=== PATIENT | male | born 1970 | race Caucasian/White ===

== ENCOUNTER → 2017-03-09 | Outpatient (CLI) | payer OTHER ==
[2017-03-09 12:38] LABS: BASO % 0.4 %; BASO ABS # 0.03 K/uL (0-0.2); COMPLETE YES; EOS % 2.4 %; HEMATOCRIT 49.3 % (42-52); IG% 0.2 %; LYMPH % 22.5 %; LYMPH ABS # 1.87 K/uL (1.2-3.4); MEAN CELL VOLUME 92.3 fL (80-100); MEAN CORPUSCULAR HEMOGLOBIN 31.1 pg (25-34); MEAN CORPUSCULAR HGB CONC 33.7 g/dl (32-36); MEAN PLATELET VOLUME 11.7 fL (7.4-10.4); MONO % 7.6 %; NEUT % 66.9 %; PLATELET COUNT 239 K/uL (130-400); RED BLOOD COUNT 5.34 M/uL (4.7-6.1); WHITE BLOOD COUNT 8.32 K/uL (4.8-10.8)
[2017-03-09 12:58] LABS: ESTIMATED AVERAGE GLUCOSE 306 mg/dl; HA1C FLAG Normal (Normal)
[2017-03-09 13:04] LABS: ALT/SGPT 82 U/L (12-78); BLOOD UREA NITROGEN 18 mg/dl (7-18); BUN/CREATININE RATIO 14.8 (10-20); CALCIUM 9.1 mg/dl (8.5-10.1); CARBON DIOXIDE 31 mmol/L (21-32); CHLORIDE 104 mmol/L (98-107); CHOLESTEROL 236 mg/dl (0-200); GLUCOSE 119 mg/dl (70-99); MAGNESIUM 2.1 mg/dl (1.8-2.4); POTASSIUM 4.2 mmol/L (3.5-5.1); SODIUM 140 mmol/L (136-145); TRIGLYCERIDES 251 mg/dl (0-150); VERY LOW DENSITY LIPOPROT CALC 50 mg/dl
[2017-03-09 13:15] LABS: ALKALINE PHOSPHATASE 88 U/L (45-117); AST/SGOT 69 U/L (15-37); CHOLESTEROL/HDL RATIO 5.1; HDL CHOLESTEROL 46 mg/dl; LDL CHOLESTEROL CALCULATED 140 mg/dl
== END | disposition home or self-care (01) ==
LOC: C.LABPVFM 07:25
PROVIDERS: ATTEND Nurse Practitioner Family
DX: E11.65 Type 2 diabetes mellitus with hyperglycemia (principal); R53.83 Other fatigue; R94.6 Abnormal results of thyroid function studies

== ENCOUNTER → 2017-03-13 | Outpatient (CLI) | payer OTHER ==
[2017-03-13 18:03] LABS: URINE APPEARANCE CLEAR (CLEAR); URINE BILIRUBIN NEG (NEG); URINE COLOR YELLOW; URINE EPITHELIAL CELL AUTO 0-5 /lpf (0-5); URINE NITRITE NEG (NEG); URINE SPECIFIC GRAVITY 1.026 (1.000-1.030); UROBILINOGEN NEG (NEG)
[2017-03-13 18:04] LABS: MANUAL MICROSCOPIC REQUIRED? NO; REVIEW REQ? NO
== END | disposition home or self-care (01) ==
LOC: C.LABPVFM 08:21
PROVIDERS: ATTEND Nurse Practitioner Family
DX: E11.65 Type 2 diabetes mellitus with hyperglycemia (principal); R53.83 Other fatigue; R94.6 Abnormal results of thyroid function studies

== ENCOUNTER → 2017-06-06 | Outpatient (CLI) | payer OTHER ==
[2017-06-06 17:36] LABS: MANUAL MICROSCOPIC REQUIRED? NO; REVIEW REQ? NO; URINE APPEARANCE CLEAR (CLEAR); URINE BILIRUBIN NEG (NEG); URINE COLOR YELLOW; URINE EPITHELIAL CELL AUTO 0-5 /lpf (0-5); URINE NITRITE NEG (NEG); URINE PH 6.5 (4.5-7.5); URINE SPECIFIC GRAVITY 1.027 (1.000-1.030); UROBILINOGEN NEG (NEG); ZZUR CULT IF INDIC CLEAN CATCH NO
[2017-06-06 17:58] LABS: CREATININE, URINE 24.2 mg/dl; URINE PROTIEN/CREAT RATIO 0.3 (0-0.2)
[2017-06-06 18:43] LABS: BLOOD UREA NITROGEN 23 mg/dl (7-18); BUN/CREATININE RATIO 14.6 (10-20); CALCIUM 8.7 mg/dl (8.5-10.1); CARBON DIOXIDE 25 mmol/L (21-32); CHLORIDE 96 mmol/L (98-107); CREATININE 1.59 mg/dl (0.60-1.40); GLUCOSE 667 mg/dl (70-99); MAGNESIUM 1.9 mg/dl (1.8-2.4); PHOSPHORUS 3.5 mg/dl (2.5-4.9); POTASSIUM 4.5 mmol/L (3.5-5.1); SODIUM 129 mmol/L (136-145)
[2017-06-06 18:53] LABS: BETA-HYDROXYBUTYRATE 3.72 mg/dL (0.2-2.81)
[2017-06-07 05:25] LABS: ESTIMATED AVERAGE GLUCOSE 258 mg/dl; HA1C FLAG Normal (Normal)
--- NOTE | 2017-06-11 09:39 | CODING QUERY MEDICAL NECESSITY ---
SUPPORTING DIAGNOSIS NEEDED Dr. Fernandes, A supporting diagnosis is required for the test/procedure performed on this patient in order for us to be reimbursed by the patient's insurance. Please provide a supporting diagnosis for the following test/procedure listed below next to the test name along with your signature. *If there is no additional diagnosis for this patient that would support the following test/procedure please document that below next to the test/procedure. Test(s)/Procedure(s) that require a supporting diagnosis: * 41361 VITAMIN D ASSAY DIAGNOSIS: DATE OF SERVICE: 06/06/17 Provider Signature: Date: Thank you Rikki Mercado [facility] Information Management Once completed, please kindly fax back to [phone] For questions please call [phone]
== END | disposition home or self-care (01) ==
LOC: C.LABPVFM 14:16
PROVIDERS: ATTEND Nurse Practitioner Family
DX: R80.9 Proteinuria, unspecified (principal); E11.65 Type 2 diabetes mellitus with hyperglycemia; R06.00 Dyspnea, unspecified

== ENCOUNTER → 2017-06-08 | Outpatient (CLI) | payer OTHER ==
--- NOTE | 2017-06-08 15:26 | DIAGNOSTIC IMAGING REPORT ---
CHEST 2 VIEWS ROUTINE CLINICAL HISTORY: COPD Dyspnea dyspnea COMPARISON STUDY: 10/24/2005 FINDINGS: Slight chronic interstitial change. No focal infiltrates. No evidence for cardiac enlargement. Diaphragms are smooth. IMPRESSION: Slight/mild chronic interstitial prominence. No acute infiltrate. The above report was generated using voice recognition software. It may contain grammatical, syntax or spelling errors. Electronically signed by: Andreas Rodríguez M.D. 06/08/2017 3:25 PM Dictated Date/Time: 06/08/2017 3:24 PM
== END | disposition home or self-care (01) ==
LOC: C.RADPV 15:04
PROVIDERS: ATTEND Internal Medicine Critical Care Medicine
DX: J44.9 Chronic obstructive pulmonary disease, unspecified (principal); R06.00 Dyspnea, unspecified

== ENCOUNTER → 2017-06-19 | Outpatient (CLI) | payer OTHER ==
[2017-06-19 18:46] LABS: BLOOD UREA NITROGEN 17 mg/dl (7-18); BUN/CREATININE RATIO 12.7 (10-20); CALCIUM 8.7 mg/dl (8.5-10.1); CARBON DIOXIDE 26 mmol/L (21-32); CHLORIDE 101 mmol/L (98-107); CREATININE 1.35 mg/dl (0.60-1.40); GLUCOSE 280 mg/dl (70-99); PHOSPHORUS 3.4 mg/dl (2.5-4.9); POTASSIUM 4.1 mmol/L (3.5-5.1); SODIUM 134 mmol/L (136-145)
== END | disposition home or self-care (01) ==
LOC: C.LABPVFM 12:19
PROVIDERS: ATTEND Internal Medicine Nephrology
DX: N28.9 Disorder of kidney and ureter, unspecified (principal)

== ENCOUNTER → 2017-07-23 | Outpatient (CLI) | payer OTHER ==
--- NOTE | 2017-07-23 19:48 | DIAGNOSTIC IMAGING REPORT ---
NUCLEAR MEDICINE PULMONARY VENTILATION/PERFUSION STUDY CLINICAL HISTORY: Torus of breath. Pulmonary embolism. COMPARISON STUDY: Chest x-ray dated 06/08/2017 FINDINGS: The patient was ventilated utilizing 31.2 mCi of technetium 99m DTPA aerosol. The patient was subsequently perfused utilizing 6.2 mm series of technetium 99m MAA. There is diffusely heterogeneous perfusion. There are multiple matched and mismatched defects. This study is of intermediate probability for pulmonary embolism. CT angiography of the chest could be obtained in follow-up as deemed clinically necessary. IMPRESSION: Significant airway disease. This limits the sensitivity and specificity of this study. This examination is of intermediate probability for pulmonary embolism. CT angiography of the chest could be obtained in follow-up as deemed clinically necessary. Electronically signed by: Tomy Rowe M.D. 07/23/2017 7:47 PM Dictated Date/Time: 07/23/2017 7:42 PM
== END | disposition home or self-care (01) ==
LOC: C.NUCL 18:35
PROVIDERS: ATTEND Internal Medicine Critical Care Medicine
DX: I26.99 Other pulmonary embolism without acute cor pulmonale (principal); R06.02 Shortness of breath

== ENCOUNTER → 2017-07-26 | Outpatient (CLI) | payer OTHER ==
[~2017-07-26] MED LIST: OPTIRAY 320 IV PRN
--- NOTE | 2017-07-26 16:07 | DIAGNOSTIC IMAGING REPORT ---
BILATERAL LOWER EXTREMITY VENOUS DOPPLER HISTORY: I26.99 Pulmonary [id number] SOB (shortness of breath) on exe COMPARISON STUDY: None. FINDINGS: There is normal compressibility and augmentation within the bilateral lower extremity deep venous systems. There is slow flow throughout the bilateral lower extremity venous systems. IMPRESSION: No DVT within the right or left lower extremity. Electronically signed by: Dileep Woods M.D. 07/26/2017 4:05 PM Dictated Date/Time: 07/26/2017 4:05 PM
--- NOTE | 2017-07-26 17:21 | DIAGNOSTIC IMAGING REPORT ---
CHEST CTA for PULMONARY ARTERIES CT DOSE: 492.34 mGycm HISTORY: Pulmonary [id number] SOB (shortness of breath TECHNIQUE: Multiaxial CT images of the chest were performed following the intravenous administration of contrast to evaluate the pulmonary arteries. Maximal intensity projection images were also obtained. A dose lowering technique was utilized adhering to the principles of ALARA. COMPARISON STUDY: Ventilation/perfusion scan 07/23/2017. Chest 06/08/2017. FINDINGS: Normal caliber thoracic aorta. No evidence for dissection within the opacified thoracic aorta. No pleural or pericardial effusions. No filling defects within the pulmonary arteries to suggest pulmonary embolus. The heart is normal in size. The visualized liver and spleen are unremarkable. The left kidney appears surgically absent. Subcentimeter mediastinal lymph nodes do not meet CT criteria for pathologic involvement. No fractures within the visualized osseous structures. No pneumothorax. The central airways are patent. Mild emphysema. A 5 mm nodule within the left upper lobe abutting the aortic arch on image 246. A 5 mm nodule within the base of the left lower lobe on image 100. No focal lung consolidations to suggest pneumonia. A 4 mm nodule within the right middle lobe on image 114. IMPRESSION: 1. No evidence for pulmonary embolus. 2. Mild emphysema. 3. A few scattered pulmonary nodules as described above with the largest measuring 5 mm. Please refer to the chart below for recommended follow-up. Please refer to below summary of Fleischner criteria recommendations for follow-up of incidental CT nodules (Kimmie Mohr, Guidelines for management of small pulmonary nodules detected on CT scans: A statement from the Fleischner Society, Radiology 237: [phone].) SOLID NODULES Solitary nodule size: <6 mm * Low risk patients: no follow-up needed * high risk patients: optional CT at 12 months Solitary nodule size: 6-8 mm * Low risk patients: follow-up at 6-12 months, then consider further follow-up at 18-24 months * high risk patients: initial follow-up CT at 6-12 months and then at 18-24 months if no change Solitary nodule size: >8 mm * either low or high risk patients - consider follow-up CT at 3 months, and/or CT-PET, and/or biopsy Multiple nodules size: <6 mm * Low risk patients: no routine follow-up * high risk patients: optional CT at 12 months Multiple nodules size: 6-8 mm * Low risk patients: follow-up at 3-6 months, then consider further follow-up at 18-24 months * high risk patients: follow-up at 3-6 months, then at 18-24 months if no change Multiple nodules size: >8 mm * Low risk patients: follow-up at 3-6 months, then consider further follow-up at 18-24 months * high risk patients: follow-up at 3-6 months, then at 18-24 months if no change Note: newly detected indeterminate nodule in persons 35 years of age or older. * Low risk patients: minimal or absent history of smoking and/or other known risk factors * high risk patients: history of smoking or of other known risk factors (e.g. first degree relative with lung cancer, or exposure to asbestos, radon, uranium) * if a nodule up to 8 mm is partly solid or is ground glass further follow-up is required after 24 months to exclude possible slow growing adenocarcinoma (MICHAEL) SUBSOLID NODULES Solitary pure ground-glass nodule * nodule size <6 mm - no CT follow-up required * nodule size >=6 mm - follow-up CT at 6-12 months, then every 2 years until 5 years Solitary part-solid nodule * nodule size <6 mm - no CT follow-up required * nodule size >=6 mm - follow-up CT at 3-6 months. If unchanged, and solid component remains <6 mm, then annual follow-up for 5 years Multiple subsolid nodules * nodule size <6 mm - follow-up CT at 3-6 months, consider further follow-up at 2 and 4 years if stable * nodule size >=6 mm - follow-up CT at 3-6 months, subsequent management based on the most suspicious nodule(s) Electronically signed by: Dileep Woods M.D. 07/26/2017 5:19 PM Dictated Date/Time: 07/26/2017 5:09 PM
== END | disposition home or self-care (01) ==
LOC: C.ULTR 15:09
PROVIDERS: ATTEND Internal Medicine Critical Care Medicine
DX: I26.99 Other pulmonary embolism without acute cor pulmonale (principal); R06.02 Shortness of breath

== ENCOUNTER → 2017-08-23 | Outpatient (CLI) | payer OTHER ==
[2017-08-23 17:23] LABS: BLOOD UREA NITROGEN 17 mg/dl (7-18); CARBON DIOXIDE 28 mmol/L (21-32); CREATININE 1.34 mg/dl (0.60-1.40); GLUCOSE 435 mg/dl (70-99); POTASSIUM 4.4 mmol/L (3.5-5.1); SODIUM 134 mmol/L (136-145)
--- NOTE | 2017-09-06 10:30 | CODING QUERY NO DIAGNOSIS ---
: 1970 TREATMENT RENDERED WITHOUT A DIAGNOSIS To promote full compliance with coding requirements relating to patient care, physician participation is requested in all cases of meat selector uncertainty. Please assist us with providing a diagnosis/symptom for the test(s) below: A diagnosis/symptom was not documented on your Order. A valid diagnosis/symptom is required to bill all insurances. Please remember that we are unable to code a diagnosis of rule out, probable, possible, questionable, or suspected. Tests that require a diagnosis: DOS: 08/23/17 * Beta Hydroxybutyrate DIAGNOSIS: Provider Signature: Date: Thank you Gena Duncan [facility] Information Management Once completed, please kindly fax back to [phone] For questions please call [phone]
== END | disposition home or self-care (01) ==
LOC: C.LAB1850 15:19
PROVIDERS: ATTEND Internal Medicine
DX: E03.9 Hypothyroidism, unspecified (principal); N28.9 Disorder of kidney and ureter, unspecified; E10.29 Type 1 diabetes mellitus with other diabetic kidney complication

== ENCOUNTER → 2017-09-04 | Outpatient (CLI) | payer OTHER ==
[~2017-09-04] MED LIST changes: +ATROPINE SULFATE 0.1 MG/ML 5ML SYR ONE; +DOBUTamine HCL 12.5 MG/ML 20 ML VIAL ONE; +METOPROLOL TARTRATE 1 MG/ML VIAL ONE; -OPTIRAY 320 IV PRN; +PERFLUTREN LIPID MICROSPHERE (DEFINITY) IV ONE
--- NOTE | 2017-09-04 13:17 | DOBUTAMINE ECHO ---
*NOTICE TO RECEIVING [employer] This information is strictly Confidential and protected under [place] law. [place] law prohibits you from making any further disclosure of this information unless further disclosure is expressly permitted by the written consent of the person to whom it pertains or is authorized by law. A general authorization for the release of medical or other information is not sufficient for this purpose. Hospital accepts no responsibility if the information is made available to any other person, INCLUDING THE PATIENT. Interpretation Summary * Name: MARTINE MCGINNIS III Study Date: 09/04/2017 10:09 AM BP: 110/75 mmHg * Patient Location: [facility] HR: 60 * : 1970 (M/d/yyyy) Gender: Male Height: 74 in * Age: 46 yrs Ethnicity: CA Weight: 167 lb * Ordering Physician: Edenilson Shabazz * Referring Physician: Edenilson Shabazz * Performed By: Tammy Curtis RDCS * * Reason For Study: Chest pain, dyspnea * BSA: 2.0 m2 * -- Conclusions -- * Left ventricular systolic function is normal. * Normal diastolic function * Right ventricular systolic pressure is normal. * Normal dobutamine echocardiogram without evidence of inducible ischemia Procedure Details * DOBUTAMINE ECHO, CPT#73108 * ECHO DOPPLER, CPT #60514 * ECHO COLOR FLOW, CPT #[id number] * A contrast injection of Definity was performed to improve assessment of LV function. * Contrast was injected into an intravenous site in the left arm. * One vial of Definity ultrasound contrast was diluted in normal saline to a total volume of 10 ml. A total of '5' ml of solution was administered during imaging. * Lot # [id number] of Definity utilized for procedure. * Expiration date AUG 27. * The attending nurse who injected the contrast agent was Flor Santiago RN. Left Ventricular Findings with Stress * Normal dobutamine echocardiogram without evidence of inducible ischemia Left Ventricle * The left ventricle is normal in size. * There is normal left ventricular wall thickness. * Ejection Fraction = 60-65%. * Left ventricular systolic function is normal. * Normal diastolic function * The left ventricular wall motion is normal at rest. Right Ventricle * The right ventricle is normal in size and function. * The right ventricular systolic function is normal as assessed by tricuspid annular plane systolic excursion (TAPSE) (normal >1.5 cm). Atria * The left atrial size is normal. * Right atrial size is normal. Mitral Valve * The mitral valve is grossly normal. * There is no mitral regurgitation noted. Tricuspid Valve * The tricuspid valve is not well visualized, but is grossly normal. * There is trace tricuspid regurgitation. * Right ventricular systolic pressure is normal. Aortic Valve * The aortic valve is normal in structure and function. * The aortic valve is trileaflet. * No hemodynamically significant valvular aortic stenosis. * There is no significant aortic regurgitation. Great Vessels * The aortic root is normal size. Pericardium * There is no pericardial effusion. Stress Parameters * Normal baseline electrocardiogram. * Stress ECG: No ST changes. No arrhythmias. * Rest heart rate was '60' BPM. * Rest blood pressure was '110/75' * Maximum heart rate achieved was 153 bpm. * Maximum heart rate was 88 % of maximum age-predicted heart rate. * Maximum blood pressure was '149/82' * Maximum Dobutamine infusion rate was '40' mcg/kg/min. * A total of 0.5 mg of intravenous Atropine was used to supplement Dobutamine for heart rate response. * Dobutamine infusion was terminated due to achieving target heart rate * A total of 5 mg of IV Metoprolol was administered to reverse Dobutamine-induced tachycardia. * The patient did not exhibit any symptoms during drug infusion. Left Ventricular Findings with Stress * Normal baseline EKG No significant EKG changes with dobutamine infusion Baseline wall motion is normal There was normal augmentation of all segments without inducible wall motion abnormality at peak dobutamine infusion Normal heart rate and blood pressure response to dobutamine No symptoms reported MMode 2D Measurements and Calculations IVSd 0.66 cm LVIDd 4.5 cm LVIDs 3.1 cm LVPWd 0.69 cm IVS/LVPW 0.95 FS 31.7 % EDV(Teich) 92.5 ml ESV(Teich) 37.1 ml EF(Teich) 59.9 % EDV(cubed) 91.2 ml ESV(cubed) 29.0 ml EF(cubed) 68.2 % LV mass(C)d 91.6 grams LV mass(C)dI 45.5 grams/m\S\2 SV(Teich) 55.3 ml SI(Teich) 27.5 ml/m\S\2 SV(cubed) 62.1 ml SI(cubed) 30.9 ml/m\S\2 Ao root diam 2.6 cm Ao root area 5.4 cm\S\2 ACS 2.2 cm LA dimension 2.4 cm asc Aorta Diam 3.3 cm LA/Ao 0.92 LVOT diam 2.0 cm LVOT area 3.3 cm\S\2 LVAd ap4 30.8 cm\S\2 LVLd ap4 7.4 cm EDV(MOD-sp4) 106.2 ml EDV(sp4-el) 109.6 ml LVAs ap4 16.5 cm\S\2 LVLs ap4 5.7 cm ESV(MOD-sp4) 40.5 ml ESV(sp4-el) 40.6 ml EF(MOD-sp4) 61.9 % EF(sp4-el) 63.0 % LVAd ap2 30.1 cm\S\2 LVLd ap2 7.5 cm EDV(MOD-sp2) 101.3 ml EDV(sp2-el) 102.4 ml LVAs ap2 17.3 cm\S\2 LVLs ap2 6.1 cm ESV(MOD-sp2) 40.0 ml ESV(sp2-el) 41.5 ml EF(MOD-sp2) 60.5 % EF(sp2-el) 59.5 % LVLd %diff 1.9 % EDV(MOD-bp) 105.3 ml LVLs %diff 6.9 % ESV(MOD-bp) 42.0 ml EF(MOD-bp) 60.1 % SV(MOD-sp4) 65.7 ml SI(MOD-sp4) 32.6 ml/m\S\2 SV(MOD-sp2) 61.3 ml SI(MOD-sp2) 30.5 ml/m\S\2 SV(MOD-bp) 63.3 ml SI(MOD-bp) 31.5 ml/m\S\2 SV(sp4-el) 69.0 ml SI(sp4-el) 34.3 ml/m\S\2 SV(sp2-el) 60.9 ml SI(sp2-el) 30.3 ml/m\S\2 Doppler Measurements and Calculations MV E max shaan 58.2 cm/sec MV A max shaan 46.6 cm/sec MV E/A 1.3 MV dec time 0.30 sec Ao V2 max 87.6 cm/sec Ao max PG 3.1 mmHg Ao max PG (full) 0.44 mmHg ANGELICA(V,A) 3.0 cm\S\2 ANGELICA(V,D) 3.0 cm\S\2 LV V1 max PG 2.6 mmHg LV V1 max 81.0 cm/sec PA V2 max 67.9 cm/sec PA max PG 1.8 mmHg PA acc slope 484.5 cm/sec\S\2 PA acc time 0.10 sec TR max shaan 177.8 cm/sec PA pr(Accel) 33.1 mmHg
== END | disposition home or self-care (01) ==
LOC: C.CPL 09:33
PROVIDERS: ATTEND Internal Medicine Critical Care Medicine
DX: R06.00 Dyspnea, unspecified (principal); R07.89 Other chest pain

== ENCOUNTER → 2017-09-06 | Outpatient (CLI) | payer OTHER ==
[2017-09-07 06:43] LABS: HEMOGLOBIN A1C 11.9 % (4.5-5.6)
== END | disposition home or self-care (01) ==
LOC: C.LAB1850 14:53
PROVIDERS: ATTEND Nurse Practitioner Adult Health
DX: E10.29 Type 1 diabetes mellitus with other diabetic kidney complication (principal); Z79.4 Long term (current) use of insulin

== ENCOUNTER → 2017-10-05 | Outpatient (CLI) | payer OTHER | END | disposition home or self-care (01) | LOC: C.LAB1850 16:07 | PROVIDERS: ATTEND Internal Medicine Nephrology | DX: E11.21 Type 2 diabetes mellitus with diabetic nephropathy (principal) ==

== ENCOUNTER → 2018-01-29 | Outpatient (CLI) | payer OTHER ==
[2018-01-29 17:54] LABS: ALBUMIN 3.8 gm/dl (3.4-5.0); ALKALINE PHOSPHATASE 72 U/L (45-117); ALT/SGPT 36 U/L (12-78); AST/SGOT 22 U/L (15-37); BLOOD UREA NITROGEN 20 mg/dl (7-18); CALCIUM 8.5 mg/dl (8.5-10.1); CARBON DIOXIDE 27 mmol/L (21-32); CHOLESTEROL 137 mg/dl (0-200); CREATININE 1.29 mg/dl (0.60-1.40); GLUCOSE 388 mg/dl (70-99); LDL CHOLESTEROL CALCULATED 57 mg/dl; POTASSIUM 4.1 mmol/L (3.5-5.1); SODIUM 136 mmol/L (136-145); TOTAL PROTEIN 6.9 gm/dl (6.4-8.2)
[2018-01-30 06:08] LABS: HEMOGLOBIN A1C 11.9 % (4.5-5.6)
== END | disposition home or self-care (01) ==
LOC: C.LAB1850 15:14
PROVIDERS: ATTEND Nurse Practitioner Adult Health
DX: E10.29 Type 1 diabetes mellitus with other diabetic kidney complication (principal); E10.65 Type 1 diabetes mellitus with hyperglycemia; E03.9 Hypothyroidism, unspecified

== ENCOUNTER 2018-02-11 10:22 | Emergency (ER) | payer OTHER ==
[~2018-02-11] VITALS: Ht 188 cm; Wt 76.2 kg
[2018-02-11 10:24] VITALS: TEMP 36.6; Ht 188 cm; Wt 76.2 kg
[2018-02-11 10:48] LABS: HEMATOCRIT 49.2 % (42-52); HEMOGLOBIN 16.6 g/dL (14.0-18.0); MEAN CELL VOLUME 91.4 fL (80-100); MEAN CORPUSCULAR HEMOGLOBIN 30.9 pg (25-34); MEAN CORPUSCULAR HGB CONC 33.7 g/dl (32-36); MEAN PLATELET VOLUME 11.5 fL (7.4-10.4); PLATELET COUNT 219 K/uL (130-400); RED CELL DISTRIBUTION WIDTH CV 12.7 % (11.5-14.5); RED CELL DISTRIBUTION WIDTH SD 42.6 fL (36.4-46.3); WHITE BLOOD COUNT 10.79 K/uL (4.8-10.8)
[2018-02-11] MEDS ORDERED: SODIUM CHLORIDE 0.9% 1000ML 1,000 ML IV STA ×2 (11:01→11:50)
[2018-02-11 11:02] LABS: PTT PATIENT 24.7 SECONDS (21.0-31.0)
[2018-02-11] MEDS ORDERED: INSPMPNVLG (11:07)
[2018-02-11] MEDS ORDERED: LPT40 PO (11:07)
[2018-02-11] MEDS ORDERED: VNTHFA/IN INH (11:07)
[2018-02-11] MEDS ORDERED: LSN25 PO (11:07)
[2018-02-11] MEDS ORDERED: LEVO100T7 PO (11:07)
--- NOTE | 2018-02-11 11:07 | DIAGNOSTIC IMAGING REPORT ---
SINGLE VIEW CHEST CLINICAL HISTORY: Atypical chest pain. FINDINGS: 2 AP, portable, upright chest radiographs are compared to study dated 06/08/2017 and correlated with chest CT dated 07/26/2017. The examination is degraded by portable technique and patient rotation. The cardiomediastinal silhouette is unremarkable. The lungs and pleural spaces are clear. No pneumothorax is seen. The bony thorax is grossly intact. IMPRESSION: No acute cardiopulmonary abnormality. Electronically signed by: Ashwin Castillo M.D. 02/11/2018 11:06 AM Dictated Date/Time: 02/11/2018 11:05 AM
[2018-02-11 11:10] LABS: CALCIUM 8.7 mg/dl (8.5-10.1); CKMB 1.5 ng/ml (0.5-3.6); CREATININE 1.53 mg/dl (0.60-1.40); POTASSIUM 5.3 mmol/L (3.5-5.1); TOTAL PROTEIN 7.3 gm/dl (6.4-8.2)
[2018-02-11] MEDS ORDERED: NovoLIN-R INSULIN PER UNIT CHARGE IV STA ×2 (11:50→14:36)
[2018-02-11 13:27] VITALS: O2SAT 96
--- NOTE | 2018-02-11 13:56 | EMERGENCY ROOM VISIT NOTE ---
History First contact with patient: 10:59 Chief Complaint: CHEST PAIN Stated Complaint: CHEST PAIN,SOB,HYPERGLYCEMIA Nursing Triage Summary: PT HERE WITH CHEST PAIN SINCE THIS AM. PT STATES NO CARDIAC HX. HAD SAME PAINS WHEN HE WAS DX WITH DM. PT WEARS INSULIN PUMP BUT IT FELL OUT LAST PM AND PT IS NOT GETTING NEEDLES UNTIL THIS AM. PT DENIES ANY SOB OR NAUSEA. SOME DISCOMFORT IN L SHOULDER History of Present Illness The patient is a 47 year old male who presents to the Emergency Room with complaints of chest pain which began this morning. The patient states he was not feeling well last night and had complained of increased gas. He states the pain began at approximately 8 AM and radiated across his chest and down his left arm into his fingertips. He states his fingertips did begin feeling slightly numb. He states his port for his insulin pump came out yesterday and he is currently waiting for needles to be delivered. He has not received any insulin since yesterday afternoon. The patient states his pain is feeling better now. He denies any aggravation or alleviation of the pain and has taken no medications. He has had pain similar to this in the past when he was diagnosed with diabetes. He denies any dizziness, nausea, vomiting, or edema. He does report some mild dyspnea. He denies any recent illness including fever , chills, or congestion. Patient is followed by Joanna gomez from endocrinology. He has not contacted their office regarding the need for his pump supplies. He states he did take 10 units of NovoLog this morning. Review of Systems A complete 10 point review of systems was reviewed with the patient with pertinent positives and negatives as per history of present illness. All else were negative. Past Medical/Surgical History Diabetes, hypertension, hyperlipidemia Social History Smoking Status: Current Every Day Smoker Smokeless Tobacco Use: No Alcohol Use: occasionally Drug Use: none Marital Status: Housing Status: lives with family Occupation Status: employed Current/Historical Medications Scheduled Atorvastatin (Lipitor), 40 MG PO QPM Insulin Aspart (novoLOG INSULIN PUMP ), 1 DOSE N/A UD Levothyroxine Sodium (Levothyroxine Sodium), 100 MCG PO QAM Lisinopril (Lisinopril), 2.5 MG PO DAILY Scheduled PRN Albuterol Hfa (Ventolin Hfa), 2 PUFFS INH Q4-6HRS PRN for SOB/Wheezing Physical Exam Vital Signs Date Time Temp Pulse Resp B/P (MAP) Pulse Ox O2 Delivery O2 Flow Rate FiO2 02/11/18 15:15 80 18 109/68 98 02/11/18 14:39 79 22 103/63 99 02/11/18 14:09 68 02/11/18 13:27 96 Room Air 02/11/18 13:26 68 18 110/71 97 02/11/18 11:41 92 20 114/75 98 Room Air 02/11/18 11:00 98 Room Air 02/11/18 10:38 88 02/11/18 10:24 36.6 89 20 125/79 98 Room Air Physical Exam VITALS: Vitals are noted on the nurse's note and reviewed by myself. Vital signs stable. GENERAL: This is a 47-year-old white male, in no acute distress, nondiaphoretic , well-developed well-nourished. SKIN: The skin was without rashes, erythema, edema, or bruising. There is no tenting of the skin. Capillary reflex less than 2 seconds. HEAD: Normocephalic atraumatic. EARS: External auditory canals clear, tympanic membranes pearly redman without erythema or effusion bilaterally. EYES: Pupils equal round and reactive to light and accommodation. Conjunctivae without injection, sclerae without icterus. Extraocular movements intact. NOSE: Patent, turbinates without inflammation or discharge. No sinus tenderness. MOUTH: Mucous membranes moist. Tonsils are not enlarged. Pharynx without erythema or exudate. Uvula midline. Airway patent. Tongue does not deviate. NECK: Supple without nuchal rigidity. No lymphadenopathy. No thyromegaly. Cervical spine is nontender. No JVD. HEART: Regular rate and rhythm without murmurs gallops or rubs. LUNGS: Clear to auscultation bilaterally without wheezes, rales or rhonchi. No dullness to percussion. No retractions or accessory muscle use. ABDOMEN: Positive bowel sounds x 4. Normal tympanic percussion. Soft, nontender, without masses or organomegaly. Cai sign negative. No guarding or rebound tenderness. MUSCULOSKELETAL: No muscle atrophy, erythema, or edema noted. Full range of motion without joint tenderness in all extremities. No tenderness to palpation. Normal gait. Strength 5/5 throughout. NEURO: Patient was alert and oriented to person place and time. Normal sensation to light and sharp touch. Deep tendon reflexes 2+ throughout. No focal neurological deficits. Medical Decision & Procedures ER Provider Diagnostic Interpretation: SINGLE VIEW CHEST CLINICAL HISTORY: Atypical chest pain. FINDINGS: 2 AP, portable, upright chest radiographs are compared to study dated 06/08/2017 and correlated with chest CT dated 07/26/2017. The examination is degraded by portable technique and patient rotation. The cardiomediastinal silhouette is unremarkable. The lungs and pleural spaces are clear. No pneumothorax is seen. The bony thorax is grossly intact. IMPRESSION: No acute cardiopulmonary abnormality. Electronically signed by: Ashwin Castillo M.D. 02/11/2018 11:06 AM Dictated Date/Time: 02/11/2018 11:05 AM Laboratory Results 02/11/18 10:35 02/11/18 13:38 Test 02/11/18 10:32 02/11/18 10:35 02/11/18 11:05 02/11/18 11:24 Bedside Glucose 508 mg/dl (70-99) Red Blood Count 5.38 M/uL (4.7-6.1) Mean Corpuscular Volume 91.4 fL (80-100) Mean Corpuscular Hemoglobin 30.9 pg (25-34) Mean Corpuscular Hemoglobin Concent 33.7 g/dl (32-36) RDW Standard Deviation 42.6 fL (36.4-46.3) RDW Coefficient of Variation 12.7 % (11.5-14.5) Mean Platelet Volume 11.5 fL (7.4-10.4) Prothrombin Time 10.0 SECONDS (9.0-12.0) Prothromb Time International Ratio 1.0 (0.9-1.1) Activated Partial Thromboplast Time 24.7 SECONDS (21.0-31.0) Partial Thromboplastin Ratio 1.0 D-Dimer 250 ug/L FEU (0-500) Total Bilirubin 1.5 mg/dl (0.2-1) Aspartate Amino Transf (AST/SGOT) 25 U/L (15-37) Alanine Aminotransferase (ALT/SGPT) 40 U/L (12-78) Alkaline Phosphatase 85 U/L (45-117) Total Creatine Kinase 110 U/L (39-308) Creatine Kinase MB 1.5 ng/ml (0.5-3.6) Creatine Kinase MB Ratio 1.4 (0-3.0) Total Protein 7.3 gm/dl (6.4-8.2) Albumin 4.0 gm/dl (3.4-5.0) Globulin 3.3 gm/dl (2.5-4.0) Albumin/Globulin Ratio 1.2 (0.9-2) Urine Color YELLOW Urine Appearance CLEAR (CLEAR) Urine pH 5.0 (4.5-7.5) Urine Specific [place] 1.027 (1.000-1.030) Urine Protein NEG (NEG) Urine Glucose (UA) 3+ (NEG) Urine Ketones 3+ (NEG) Urine Occult Blood NEG (NEG) Urine Nitrite NEG (NEG) Urine Bilirubin NEG (NEG) Urine Urobilinogen NEG (NEG) Urine Leukocyte Esterase NEG (NEG) Lactic Acid Level 1.9 mmol/L (0.4-2.0) Lipase 101 U/L (73-393) Test 02/11/18 12:22 02/11/18 13:38 Bedside Troponin I < 0.030 ng/ml (0-0.045) Anion Gap 11.0 mmol/L (3-11) Est Creatinine Clear Calc Drug Dose 70.6 ml/min Estimated GFR () 69.6 Estimated GFR (Non- 60.0 BUN/Creatinine Ratio 18.0 (10-20) Calcium Level 8.2 mg/dl (8.5-10.1) Beta-Hydroxybutyric Acid 33.32 mg/dL (0.2-2.81) Medications Administered Medications (Trade) Dose Ordered Sig/Miki Route Start Time Stop Time Status Last Admin Dose Admin Sodium Chloride 1,000 ml @ 999 mls/hr Q1H1M STAT IV 02/11/18 11:01 02/11/18 12:01 DC 02/11/18 11:11 999 MLS/HR Sodium Chloride 1,000 ml @ 999 mls/hr Q1H1M STAT IV 02/11/18 11:50 02/11/18 12:50 DC 02/11/18 11:59 999 MLS/HR Insulin Human Regular (novoLIN-R U-100 PER UNIT) 10 units NOW STAT IV 02/11/18 11:50 02/11/18 11:52 DC 02/11/18 12:00 10 UNITS ECG Per My Interpretation Indication: chest pain Rate (beats per minute): 81 Rhythm: sinus with SA Findings: no acute ischemic change, no ectopy Comparison ECG Date: 2004 Change: no significant change (previous sinus bradycardia with SA, current sinus rhythm with SA) ED Course Critical pathways initiated by nursing staff. IV access obtained, labs drawn. Imaging performed and reviewed by myself and radiologist as above. The patient was seen and evaluated as above. Labs reviewed by myself. I discussed the case with my attending. I consulted with the patient's endocrinology provider, Joanna Michelle. The patient was given 2L IV NSS and 10 units of insulin IV. Repeat BMP performed and reviewed by myself. I discussed the findings with the patient at bedside. The patient had hooked up his sensor and states his blood sugar is continuing to drop. He requested to be discharged so he can go to endocrinology and obtain supplies needed for his insulin pump. Discharge instructions reviewed, the patient was discharged home in good condition. Medical Decision This is a 47-year-old male patient presents emergency department today complaining of chest pain. The patient has experienced similar pain with hyperglycemia and diagnosis of diabetes. Cardiac workup here in the emergency department was negative. Suspect the patient's symptoms are related to the hyperglycemia, as his chest pain improved while here in the emergency department as his blood sugar improved as well. Negative troponins 2. Patient 's CBC is without leukocytosis, anemia, thrombocytopenia. Coagulation factors were normal. D-dimer was negative. Urinalysis with positive ketones, but negative for infection or blood. POC Glucose 508. Initial CMP concerning for early DKA with elevated BSG of 542, hyponatremia of 125, hyperkalemia 5.3, anion gap 14.0 and elevated creatinine of 1.53. Lactic acid 1.9. Hepatic function without significant abnormalities, however bilirubin slightly elevated at 1.5. Beta hydroxybutyric acid 48.88. Initial troponin and CK-MB were normal. Lipase was normal. Repeat troponin at 90 minutes was negative. Repeat BMP after 2 L normal saline solution and 10 units of insulin was significantly improved. Sodium has improved to 135. Potassium 4.3. Anion gap 11.0. Creatinine 1.38. Glucose has improved to 323. Beta-Hydroxybutyric Acid 33.32. At this point, I had intended to give the patient another 6 units of IV insulin, however he has inserted his sensor and states his blood sugar has improved to the 280s and would like to go home. The patient is planning on going straight to the endocrinology office to obtain supplies for his pump as well as insulin. He is concerned that his sugar may continue to drop and would like to get something to eat. I do feel that this is reasonable, as after speaking with the patient's endocrinology provider, his sugars typically run in the 200s-300s with a recent A1c of 11.9. Discharge instructions were reviewed, and all questions answered patient satisfaction prior to discharge. He was given strict return precautions. Etiologies such as cardiac ischemia, aortic dissection, pulmonary embolism, pneumonia, pneumothorax, musculoskeletal, infections, gastrointestinal, DKA, hyperglycemia, as well as others were entertained. The chart was completed utilizing [employer] Speech voice recognition software. Grammatical errors, random word insertions, pronoun errors, and incomplete sentences are an occasional consequence of this system due to software limitations, ambient noise, and hardware issues. Any formal questions or concerns about the content, text, or information contained within the body of this dictation should be directly addressed to the provider for clarification. Medication Reconcilliation Current Medication List: was personally reviewed by me Blood Pressure Screening Patient's blood pressure: Normal blood pressure Consults Consulting Physician: Joanna Michelle I contacted Sienna Albright with endocrinology. 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 He is normally in the 300s, and his last A1c was checked in January and was 11.9. He was started on the pump to avoid his sugars from dropping too low, however does not have insurance so it has been difficult to get back in for follow-up. She advised that she feels comfortable of the patient's electrolytes and glucose improve while here in the emergency department and we can get him hydrated to send him home. She stated that he could stop by the office and be seen by the para educator. They do have insulin in the office as well as pump supplies that they can supply the patient with until he is able to get his package delivered. She did request that I contact her back at extension [phone] after repeat labs and disposition. Impression Primary Impression: Non-cardiac chest pain Additional Impression: Hyperglycemia Departure Information Dispostion Home / Self-Care Condition GOOD Referrals RV. Maki MD (PCP) Miguel Angel, Joanna Whyte Patient Instructions ED Chest Pain NonCardiac, ED Hyperglycemia Diabetic, My [facility] Additional Instructions You were seen in the emergency department today for hyperglycemia. As discussed , you do need to follow-up with your wood mechanist regarding ongoing management and treatment of your blood sugar. Drink plenty of fluids and stay well-hydrated. Go straight to endocrinology office to obtain the needed parts for your pump. Speak with the para educator there regarding management of your diabetes and current elevated blood sugar. You may eat, but you do need to bolus your insulin properly. Follow the sliding scale you have at home. Return immediately to the emergency department for any significantly worsening chest pain, difficulty breathing, elevated or low blood sugar causing symptoms, or other concerning symptoms. Problem Qualifiers
[2018-02-11 14:10] LABS: CALCIUM 8.2 mg/dl (8.5-10.1); CREATININE 1.38 mg/dl (0.60-1.40); POTASSIUM 4.3 mmol/L (3.5-5.1)
[2018-02-11 15:15] VITALS: BP 109/68; PULSE 80; O2SAT 98
== END 2018-02-11 15:05 | disposition home or self-care (01) ==
LOC: C.EDB 10:23 → C.EDC 15:05
DX: R07.89 Other chest pain (principal); R73.9 Hyperglycemia, unspecified; F17.200 Nicotine dependence, unspecified, uncomplicated